=== PATIENT | female | born 1995 | race Caucasian/White ===

== ENCOUNTER 2019-10-04 08:46 | Outpatient (RCR) | payer BC ==
[~2019-10-04] VITALS: Ht 157.5 cm; Wt 68.6 kg
[~2019-10-04 08:46] MED LIST: PANT40TA3 PO; bcp PO
== END 2019-10-04 14:45 | disposition home or self-care (01) ==
LOC: PREOP 08:46
PROVIDERS: ATTEND Surgery
DX: Z01.818 Encounter for other preprocedural examination (principal); Z11.59 Encounter for screening for other viral diseases; R13.10 Dysphagia, unspecified
CPT/HCPCS: 87635